=== PATIENT | male | born 1935 | race Caucasian/White ===

== ENCOUNTER → 2016-09-25 | Outpatient (CLI) | payer OTHER ==
--- NOTE | 2016-09-25 11:16 | DIAGNOSTIC IMAGING REPORT ---
CHEST 2 VIEWS ROUTINE CLINICAL HISTORY: LOWER RESPIRATORY TRACT INFECTION J22 *STAT COMPARISON STUDY: CT scan dated 03/28/2016 FINDINGS: The heart is normal in size. There is no failure. There is no focal pulmonary consolidation. There is minor basilar atelectasis. There is mild hilar prominence, likely secondary to prominent pulmonary arteries.[ No pleural effusions are visualized. IMPRESSION: No active disease in the chest. Electronically signed by: Rikki Serrano M.D. 09/25/2016 11:15 AM Dictated Date/Time: 09/25/2016 11:14 AM
== END | disposition home or self-care (01) ==
LOC: C.RAD 10:52
PROVIDERS: ATTEND Physician Assistant Medical
DX: J22 Unspecified acute lower respiratory infection (principal)

== ENCOUNTER → 2016-09-30 | Outpatient (CLI) | payer OTHER ==
--- NOTE | 2016-09-30 14:09 | DIAGNOSTIC IMAGING REPORT ---
LUMBAR SPINE MRI HISTORY: Back pain LUMBAR RADICULOPATHY TECHNIQUE: Multiplanar multisequence MRI of the lumbar spine was performed without the use of contrast. COMPARISON: None. FINDINGS: For the purpose of the report the L5-S1 disc space will be located on axial image 23 of 25. Findings of posterior laminectomy and fusion at L4-L5. Sagittal images show normal signal characteristics the vertebral bodies. There are findings suggesting narrowing of spinal canal at L3-L4. There is slight wedge deformity superior endplate T12 felt to be old.. L1-L2: Mild broad-based bulging disc with mild impact anterior thecal sac. Neuroforamina are patent bilaterally. L2-L3: Mild multifactorial narrowing of the spinal canal. Broad-based bulging disc. Moderate narrowing of the right and to lesser extent left neural foramina. L3-L4: Moderate to significant multifactorial spinal stenosis. Mild broad-based disc herniation. L4-L5: No significant central canal or neural foraminal narrowing. L5-S1: No significant central canal or neural foraminal narrowing. IMPRESSION:. 1. Findings consistent with a posterior fusion at L4 and L5. 2. Significant multifactorial spinal stenosis L3-L4. 3. Mild multifactorial narrowing of the spinal canal at L2-L3. 4. Broad-based bulging disc L1-L2. Electronically signed by: Oleg Patricio M.D. 09/30/2016 2:08 PM Dictated Date/Time: 09/30/2016 2:03 PM
== END | disposition home or self-care (01) ==
LOC: C.MRI 12:19
PROVIDERS: ATTEND Orthopaedic Surgery Orthopaedic Surgery of the Spine
DX: M99.73 Connective tissue and disc stenosis of intervertebral foramina of lumbar region (principal); M51.16 Intervertebral disc disorders with radiculopathy, lumbar region

== ENCOUNTER → 2016-12-09 | Outpatient (CLI) | payer OTHER ==
--- NOTE | 2016-12-09 14:40 | DIAGNOSTIC IMAGING REPORT ---
LEFT ANKLE 3 VIEWS CLINICAL HISTORY: Left ankle injury. FINDINGS: 3 views of the left ankle are obtained. No prior studies are available for comparison at the time of dictation. The skeletal structures are osteopenic. No fracture is seen. The ankle mortise is intact. There are large dorsal and plantar calcaneal enthesophytes. There is a small joint effusion. Soft tissue edema is present throughout the imaged left lower extremity. IMPRESSION: Soft tissue swelling and joint effusion. There is no radiographic evidence of left ankle fracture. Electronically signed by: Darwin Carmichael M.D. 12/09/2016 2:38 PM Dictated Date/Time: 12/09/2016 2:37 PM
== END | disposition home or self-care (01) ==
LOC: C.RAD 13:58
PROVIDERS: ATTEND Physician Assistant Surgical
DX: S99.912A Unspecified injury of left ankle, initial encounter (principal); X58.XXXA Exposure to other specified factors, initial encounter